=== PATIENT | female | born 1990 | race Asian ===

== ENCOUNTER 2016-10-17 20:59 | Emergency (ER) | payer OTHER ==
[~2016-10-17] VITALS: Ht 157.5 cm; Wt 50.0 kg
[2016-10-17 21:00] VITALS: BP 142/74; TEMP 97.1
[2016-10-17 22:10] VITALS: PULSE 84
== END 2016-10-17 22:40 | disposition home or self-care (01) ==
LOC: COL.ER 20:59
DX: T71.9XXA Asphyxiation due to unspecified cause, initial encounter (principal); S70.312A Abrasion, left thigh, initial encounter; S50.311A Abrasion of right elbow, initial encounter; S70.12XA Contusion of left thigh, initial encounter; Y04.8XXA Assault by other bodily force, initial encounter; Y92.481 Parking lot as the place of occurrence of the external cause

== ENCOUNTER 2018-09-24 18:34 | Emergency (ER) | payer SELFPAY ==
[~2018-09-24] VITALS: Ht 165 cm; Wt 49.0 kg
[2018-09-24 18:39] VITALS: BP 144/90; PULSE 65; TEMP 98.2
== END 2018-09-24 19:38 | disposition home or self-care (01) ==
LOC: COL.ER 18:34
DX: S09.90XA Unspecified injury of head, initial encounter (principal); V43.62XA Car passenger injured in collision with other type car in traffic accident, initial encounter; Y92.481 Parking lot as the place of occurrence of the external cause